=== PATIENT | female | born 1985 | race Caucasian/White ===

== ENCOUNTER 2019-08-03 11:18 | Emergency (ER) | payer OTHER ==
[~2019-08-03] VITALS: Ht 157.5 cm; Wt 77.1 kg
[2019-08-03] MEDS ORDERED: KEFLEX500 M1 PO (12:23)
[2019-08-03 12:42] VITALS: BP 128/72
== END 2019-08-03 12:43 | disposition home or self-care (01) ==
LOC: M.ERS 11:18
DX: S61.011A Laceration without foreign body of right thumb without damage to nail, initial encounter (principal); W26.8XXA Contact with other sharp object(s), not elsewhere classified, initial encounter; Y93.89 Activity, other specified; Y92.89 Other specified places as the place of occurrence of the external cause; Y99.8 Other external cause status